=== PATIENT | male | born 1980 | race Caucasian/White ===

== ENCOUNTER 2017-11-08 11:55 | Emergency (ER) | payer MEDICARE, MEDICAID, OTHER ==
[2017-11-08 13:55] LABS: ADD MAN DIFF? NO
[2017-11-08 13:59] LABS: BASOPHIL # 0.1 10^3/ul (0.0-0.1); BASOPHILS % 0.7 % (0.0-2.0); EOSINOPHILS # 0.4 10^3/ul (0.0-0.5); EOSINOPHILS % 3.2 % (0.0-7.0); HEMATOCRIT 32.3 % (42.0-52.0); HEMOGLOBIN 10.4 g/dl (14.0-18.0); LYMPHOCYTES # 1.2 10^3/ul (0.8-2.9); LYMPHOCYTES % 9.9 % (15.0-51.0); MEAN CORPUSCULAR HEMOGLOBIN 28.1 pg (29.0-33.0); MEAN CORPUSCULAR HGB CONC 32.2 g/dl (32.0-37.0); MEAN CORPUSCULAR VOLUME 87.3 fl (82.0-101.0); MEAN PLATELET VOLUME 8.6 fl (7.4-10.4); MONOCYTE # 1.5 10^3/ul (0.3-0.9); MONOCYTES % 12.2 % (0.0-11.0); NEUTROPHIL # 8.9 10^3/ul (1.6-7.5); NEUTROPHILS % 73.4 % (39.0-77.0); PLATELET COUNT 322 10^3/UL (140-415); POSITIVE DIFF @See below; RED CELL DISTRIBUTION WIDTH 12.8 % (11.5-14.5)
[2017-11-08 13:59] LABS: WHITE BLOOD COUNT 12.2 10^3/ul (4.8-10.8)
[2017-11-08] MEDS: HYDROmorphONE 1 MG/ML SYG IV (14:10)
[2017-11-08] MEDS: METHYLPREDNISOLONE 125 MG INJ IV (14:10)
[2017-11-08] MEDS: ONDANSETRON 4 MG INJ IV ×2 (14:10→16:08)
[2017-11-08] MEDS: SOD CHLORIDE 0.9% 1,000 ML IV ×2 (14:11→18:22)
[2017-11-08 14:16] LABS: ALANINE AMINOTRANSFERASE 23 IU/L (13-69); ALBUMIN 3.5 g/dl (3.3-4.9); ALBUMIN/GLOBULIN RATIO 0.94; ALKALINE PHOSPHATASE 76 IU/L (42-121); ANION GAP 15 (8-16); ASPARTATE AMINO TRANSFERASE 15 IU/L (15-46); BILIRUBIN,INDIRECT 0.5 mg/dl (0-1.1); BILIRUBIN,TOTAL 0.5 mg/dl (0.2-1.3); BLOOD UREA NITROGEN 15 mg/dl (7-20); CALCIUM 8.7 mg/dl (8.4-10.2); CARBON DIOXIDE 25 mmol/L (21-31); CHLORIDE 102 mmol/L (97-110); CREATININE 0.65 mg/dl (0.61-1.24); GLUCOSE 128 mg/dl (70-220); LIPASE 66 U/L (23-300); POTASSIUM 3.5 mmol/L (3.5-5.1); SODIUM 138 mmol/L (135-144); TOTAL PROTEIN 7.2 g/dl (6.1-8.1)
[2017-11-08 14:35] LABS: OCCULT BLOOD STOOL NEGATIVE (NEGATIVE)
[2017-11-08] MEDS: HYDROmorphONE 2 MG/ML SYG IV (16:11)
[2017-11-08] MEDS: IOHEXOL 300MG/ML 150 ML BTL (16:24)
[2017-11-08] MEDS: SOD CHLORIDE 0.9% 100 ML (16:24)
[2017-11-08] MEDS: DIPHENHYDRAMINE 50 MG INJ IV (17:44)
== END 2017-11-08 19:24 | disposition home or self-care (01) ==
LOC: FTE 19:24
DX: K52.9 Noninfective gastroenteritis and colitis, unspecified (principal)
CPT/HCPCS: 74177; 80053; 82270; 83690; 85025; 96374; 96375; 96376; 99285-25

== ENCOUNTER 2017-11-11 14:23 | Emergency (ER) | payer MEDICARE, MEDICAID ==
[2017-11-11] MEDS: ONDANSETRON 4 MG INJ IV (15:31)
[2017-11-11] MEDS: SOD CHLORIDE 0.9% 1,000 ML IV (15:31)
[2017-11-11 15:34] LABS: ADD MAN DIFF? NO
[2017-11-11 15:37] LABS: WHITE BLOOD COUNT 10.1 10^3/ul (4.8-10.8)
[2017-11-11 15:37] LABS: ABNORMAL IP MESSAGE 1; BASOPHILS % 0.3 % (0.0-2.0); EOSINOPHILS # 0.1 10^3/ul (0.0-0.5); EOSINOPHILS % 1.2 % (0.0-7.0); HEMATOCRIT 30.5 % (42.0-52.0); HEMOGLOBIN 9.8 g/dl (14.0-18.0); LYMPHOCYTES # 2.2 10^3/ul (0.8-2.9); LYMPHOCYTES % 21.3 % (15.0-51.0); MEAN CORPUSCULAR HEMOGLOBIN 28.1 pg (29.0-33.0); MEAN CORPUSCULAR HGB CONC 32.1 g/dl (32.0-37.0); MEAN CORPUSCULAR VOLUME 87.4 fl (82.0-101.0); MEAN PLATELET VOLUME 8.7 fl (7.4-10.4); MONOCYTE # 1.8 10^3/ul (0.3-0.9); MONOCYTES % 18.1 % (0.0-11.0); NEUTROPHIL # 5.9 10^3/ul (1.6-7.5); NEUTROPHILS % 57.9 % (39.0-77.0); NUCLEATED RED BLOOD CELLS% 0.4 /100WBC (0.0-0.0); PLATELET COUNT 437 10^3/UL (140-415); POSITIVE DIFF @See below; RED BLOOD COUNT 3.49 10^6/ul (4.70-6.10); RED CELL DISTRIBUTION WIDTH 13.1 % (11.5-14.5)
[2017-11-11 16:04] LABS: ALANINE AMINOTRANSFERASE 27 IU/L (13-69); ALBUMIN 2.8 g/dl (3.3-4.9); ALKALINE PHOSPHATASE 68 IU/L (42-121); ANION GAP 9 (8-16); ASPARTATE AMINO TRANSFERASE 11 IU/L (15-46); BLOOD UREA NITROGEN 15 mg/dl (7-20); CALCIUM 8.5 mg/dl (8.4-10.2); CARBON DIOXIDE 32 mmol/L (21-31); CHLORIDE 100 mmol/L (97-110); CREATININE 0.67 mg/dl (0.61-1.24); GLUCOSE 104 mg/dl (70-220); LIPASE 59 U/L (23-300); POTASSIUM 4.1 mmol/L (3.5-5.1); SODIUM 137 mmol/L (135-144); TOTAL PROTEIN 5.9 g/dl (6.1-8.1)
[2017-11-11 18:20] LABS: UR MUCUS FEW /HPF (NONE SEEN); UR RBC 1 /HPF (0-5); UR WBC 0 /HPF (0-5)
[2017-11-11 18:26] LABS: ADD UMIC YES; UR ASCORBIC ACID NEGATIVE (NEGATIVE); UR BILIRUBIN (Dip) NEGATIVE (NEGATIVE); UR BLOOD (Dip) NEGATIVE (NEGATIVE); UR CLARITY CLEAR (CLEAR); UR COLOR YELLOW (YELLOW); UR GLUCOSE (Dip) NEGATIVE (NEGATIVE); UR KETONES (Dip) NEGATIVE (NEGATIVE); UR LEUKOCYTE ESTERASE (Dip) TRACE Leu/ul (NEGATIVE); UR NITRITE (Dip) NEGATIVE (NEGATIVE); UR TOTAL PROTEIN (Dip) NEGATIVE (NEGATIVE); UR UROBILINOGEN (Dip) NEGATIVE (NEGATIVE)
[2017-11-11] MEDS: morphine 4 MG/ML VIAL IV (18:38)
== END 2017-11-11 20:09 | disposition home or self-care (01) ==
LOC: FTE 14:23
DX: K52.9 Noninfective gastroenteritis and colitis, unspecified (principal)
CPT/HCPCS: 36415; 80053; 81001; 83690; 85025; 96361; 96374; 96375; 99284-25

== ENCOUNTER 2017-11-15 10:48 | Inpatient (IN) | payer MEDICARE, MEDICAID ==
[2017-11-15] MEDS: ONDANSETRON 4 MG INJ IV ×2 (11:30→17:05)
[2017-11-15] MEDS: SOD CHLORIDE 0.9% 1,000 ML IV (11:30)
[2017-11-15] MEDS: morphine 4 MG/ML VIAL IV (11:30)
[2017-11-15 11:40] LABS: ADD MAN DIFF? NO
[2017-11-15 11:43] LABS: WHITE BLOOD COUNT 14.1 10^3/ul (4.8-10.8)
[2017-11-15 11:43] LABS: ABNORMAL IP MESSAGE 1; BASOPHIL # 0.1 10^3/ul (0.0-0.1); BASOPHILS % 0.4 % (0.0-2.0); EOSINOPHILS # 0.2 10^3/ul (0.0-0.5); EOSINOPHILS % 1.6 % (0.0-7.0); HEMATOCRIT 32.8 % (42.0-52.0); HEMOGLOBIN 10.8 g/dl (14.0-18.0); LYMPHOCYTES # 2.6 10^3/ul (0.8-2.9); LYMPHOCYTES % 18.4 % (15.0-51.0); MEAN CORPUSCULAR HEMOGLOBIN 28.1 pg (29.0-33.0); MEAN CORPUSCULAR HGB CONC 32.9 g/dl (32.0-37.0); MEAN CORPUSCULAR VOLUME 85.2 fl (82.0-101.0); MEAN PLATELET VOLUME 8.1 fl (7.4-10.4); MONOCYTE # 1.7 10^3/ul (0.3-0.9); MONOCYTES % 12.3 % (0.0-11.0); NEUTROPHIL # 9.3 10^3/ul (1.6-7.5); NEUTROPHILS % 66.4 % (39.0-77.0); PLATELET COUNT 582 10^3/UL (140-415); POSITIVE DIFF @See below; RED BLOOD COUNT 3.85 10^6/ul (4.70-6.10); RED CELL DISTRIBUTION WIDTH 13.2 % (11.5-14.5)
[2017-11-15 12:08] LABS: ALANINE AMINOTRANSFERASE 31 IU/L (13-69); ALBUMIN 3.4 g/dl (3.3-4.9); ALBUMIN/GLOBULIN RATIO 0.87; ALKALINE PHOSPHATASE 68 IU/L (42-121); ANION GAP 17 (8-16); ASPARTATE AMINO TRANSFERASE 14 IU/L (15-46); BILIRUBIN,INDIRECT 0.4 mg/dl (0-1.1); BILIRUBIN,TOTAL 0.4 mg/dl (0.2-1.3); BLOOD UREA NITROGEN 10 mg/dl (7-20); CALCIUM 8.6 mg/dl (8.4-10.2); CARBON DIOXIDE 31 mmol/L (21-31); CHLORIDE 92 mmol/L (97-110); CREATININE 0.73 mg/dl (0.61-1.24); GLUCOSE 102 mg/dl (70-220); LIPASE 62 U/L (23-300); POTASSIUM 3.5 mmol/L (3.5-5.1); SODIUM 136 mmol/L (135-144); TOTAL PROTEIN 7.3 g/dl (6.1-8.1)
[2017-11-15] MEDS: IOHEXOL 300MG/ML 150 ML BTL (12:47)
[2017-11-15] MEDS: SOD CHLORIDE 0.9% 100 ML (12:47)
[2017-11-15] MEDS: HYDROmorphONE 0.5 MG/0.5 ML SYG IV (12:58)
[2017-11-15 13:00] LABS: BAND NEUTROPHILS #M 4.5 10^3/ul (0.0-0.6); BAND NEUTROPHILS % (M) 32 % (0-4); EOSINOPHILS % (M) 3 % (0-7); LYMPHOCYTES #M 2.5 10^3/ul (0.8-2.9); LYMPHOCYTES % (M) 18 % (15-51); METAMYELOCYTES #M 0.1 10^3/ul (0.0-0.0); METAMYELOCYTES %M 1 % (0-0); MONOCYTE #M 1.2 10^3/ul (0.3-0.9); MONOCYTES % (M) 9 % (0-11); MYELOCYTES #M 0.1 10^3/ul (0.0-0.0); MYELOCYTES % (M) 1 % (0-0); PLATELET ESTIMATE NORMAL; POLYCHROMASIA 3+ (0-0); SEG NEUT #M 5.7 10^3/ul (1.6-7.5); SEGMENTED NEUTROPHILS (M) % 36 % (39-77); SMUDGE%M 9 % (0-0)
[2017-11-15] MEDS ORDERED: SOD CHLORIDE 0.9% 1,000 ML IV (13:55)
[2017-11-15] MEDS ORDERED: METHYLPREDNISOLONE 4 MG TAB PO (14:00)
[2017-11-15] MEDS ORDERED: ONDANSETRON 4 MG INJ IV (14:00)
[2017-11-15] MEDS ORDERED: ALBUTEROL/IPRATROPIUM (NEB) 3 ML AMP HHN (14:00)
[2017-11-15] MEDS ORDERED: NITROGLYCERIN (SL) 0.4 MG TAB SL (14:00)
[2017-11-15] MEDS ORDERED: ACETAMINOPHEN 325 MG TAB PO (14:00)
[2017-11-15] MEDS ORDERED: NACL 0.9% 3 ML SYG IV (14:00)
[2017-11-15] MEDS ORDERED: NA PHOSPHATE/BIPHOS 133 ML ENEMA PR (14:00)
[2017-11-15] MEDS ORDERED: DOCUSATE SODIUM 100 MG CAP PO (14:00)
[2017-11-15] MEDS ORDERED: LORAZEPAM 2 MG INJ IV (14:00)
[2017-11-15] MEDS ORDERED: hydrALAzine 20 MG INJ IV (14:00)
[2017-11-15] MEDS ORDERED: CIPROFLOXACIN 400MG/D5W 200 ML IVPB (14:00)
[2017-11-15 14:41] LABS: FREE T4 (FREE THYROXINE) 2.04 ng/dl (0.79-2.35)
[2017-11-15 14:48] LABS: LACTIC ACID 0.6 mmol/L (0.5-2.0)
[2017-11-15 14:57] LABS: ADD UMIC NO; UR ASCORBIC ACID 40 mg/dL (NEGATIVE); UR BILIRUBIN (Dip) NEGATIVE (NEGATIVE); UR BLOOD (Dip) NEGATIVE (NEGATIVE); UR CLARITY CLEAR (CLEAR); UR COLOR YELLOW (YELLOW); UR GLUCOSE (Dip) NEGATIVE (NEGATIVE); UR KETONES (Dip) 2+ mg/dL (NEGATIVE); UR LEUKOCYTE ESTERASE (Dip) NEGATIVE Leu/ul (NEGATIVE); UR NITRITE (Dip) NEGATIVE (NEGATIVE); UR SPECIFIC GRAVITY (Dip) 1.056 (1.003-1.030); UR TOTAL PROTEIN (Dip) NEGATIVE (NEGATIVE); UR UROBILINOGEN (Dip) NEGATIVE (NEGATIVE)
[2017-11-15] MEDS: DEXTROSE 5%-0.45% NACL 1,000 ML IV (16:15)
[2017-11-15] MEDS: metroNIDAZOLE 500 MG/NS (PMX) 100 ML IVPB ×2 (16:15→22:40)
[2017-11-15] MEDS ORDERED: MESALAMINE (SR) 250 MG CAP PO (17:00)
[2017-11-15] MEDS: morphine 2 MG INJ IV ×2 (17:12→21:31)
[2017-11-15] MEDS: MESALAMINE (SR) 250 MG CAP PO ×2 (17:30→21:08)
[2017-11-15] MEDS: AZTREONAM 1 GM/NS (PMX) 50 ML IVPB (18:50)
[2017-11-15 20:34] LABS: LACTIC ACID 1.3 mmol/L (0.5-2.0)
[2017-11-15 20:55] LABS: PROTIME 17.4 Sec (11.9-14.9); PT RATIO 1.4
[2017-11-15 20:56] LABS: PARTIAL THROMBOPLASTIN TIME 49.6 Sec (25.0-35.0)
[2017-11-15] MEDS ORDERED: HEPARIN 5,000 UNIT/0.5 ML VIAL SC (21:00)
[2017-11-15] MEDS ORDERED: PANTOPRAZOLE (EC) 40 MG TAB PO (21:00)
[2017-11-15] MEDS: FERROUS SULFATE (EC) 325 MG TAB PO (21:08)
[2017-11-15] MEDS: DICLOFENAC SODIUM 1% GEL 100 GM TUBE TP (21:08)
[2017-11-15] MEDS: METHYLPREDNISOLONE 40 MG INJ IV (22:40)
[2017-11-16] MEDS: DEXTROSE 5%-0.45% NACL 1,000 ML IV ×4 (02:00→19:54)
[2017-11-16] MEDS: ONDANSETRON 4 MG INJ IV ×3 (02:31→19:53)
[2017-11-16] MEDS: morphine 2 MG INJ IV ×4 (02:31→18:52)
[2017-11-16 04:14] LABS: ALANINE AMINOTRANSFERASE 24 IU/L (13-69); ALBUMIN 2.6 g/dl (3.3-4.9); ALKALINE PHOSPHATASE 53 IU/L (42-121); ASPARTATE AMINO TRANSFERASE 14 IU/L (15-46); BILIRUBIN,INDIRECT 0.2 mg/dl (0-1.1); BILIRUBIN,TOTAL 0.2 mg/dl (0.2-1.3); TOTAL PROTEIN 5.6 g/dl (6.1-8.1)
[2017-11-16 04:15] LABS: HEMATOCRIT 27.9 % (42.0-52.0); HEMOGLOBIN 9.3 g/dl (14.0-18.0); MEAN CORPUSCULAR HEMOGLOBIN 28.1 pg (29.0-33.0); MEAN CORPUSCULAR HGB CONC 33.3 g/dl (32.0-37.0); MEAN CORPUSCULAR VOLUME 84.3 fl (82.0-101.0); MEAN PLATELET VOLUME 9.8 fl (7.4-10.4); PLATELET COUNT 363 10^3/UL (140-415); POSITIVE DIFF @See below; RED BLOOD COUNT 3.31 10^6/ul (4.70-6.10); RED CELL DISTRIBUTION WIDTH 13.4 % (11.5-14.5)
[2017-11-16 04:17] LABS: ADD MAN DIFF? YES; ANION GAP 12 (8-16); BLOOD UREA NITROGEN 7 mg/dl (7-20); CALCIUM 7.9 mg/dl (8.4-10.2); CARBON DIOXIDE 27 mmol/L (21-31); CHLORIDE 98 mmol/L (97-110); CREATININE 0.64 mg/dl (0.61-1.24); GLUCOSE 141 mg/dl (70-220); MAGNESIUM 1.7 mg/dl (1.7-2.5); PHOSPHORUS 4.3 mg/dl (2.5-4.9); POTASSIUM 4.2 mmol/L (3.5-5.1); SODIUM 133 mmol/L (135-144)
[2017-11-16 04:18] LABS: LACTIC ACID 0.8 mmol/L (0.5-2.0)
[2017-11-16 04:30] LABS: CHOLESTEROL 76 mg/dl (100-200)
[2017-11-16 04:30] LABS: CHOL/HDL RATIO 2.3 RATIO; HDL CHOLESTEROL 33 mg/dl (28-63); LDL CHOLESTEROL,CALCULATED 30 mg/dl; TRIGLYCERIDES 63 mg/dl (0-149)
[2017-11-16 04:59] LABS: BAND NEUTROPHILS #M 4.3 10^3/ul (0.0-0.6); BAND NEUTROPHILS % (M) 36 % (0-4); ERYTHROBLAST% (NRBC) (M) 1 % (0-0); LYMPHOCYTES #M 0.2 10^3/ul (0.8-2.9); LYMPHOCYTES % (M) 2 % (15-51); MONOCYTE #M 0.4 10^3/ul (0.3-0.9); MONOCYTES % (M) 4 % (0-11); MYELOCYTES #M 0.1 10^3/ul (0.0-0.0); MYELOCYTES % (M) 1 % (0-0); PLATELET ESTIMATE NORMAL; POIKILOCYTOSIS 2+ (0-0); SEG NEUT #M 7.4 10^3/ul (1.6-7.5); SEGMENTED NEUTROPHILS (M) % 57 % (39-77); SMUDGE%M 36 % (0-0)
[2017-11-16 05:15] LABS: HEMOGLOBIN A1C 5.5 % (0-5.9)
[2017-11-16 05:26] LABS: THYROID STIMULATING HORMONE 0.351 MIU/L (0.465-4.680)
[2017-11-16] MEDS: METHYLPREDNISOLONE 40 MG INJ IV ×3 (06:20→22:10)
[2017-11-16] MEDS: PANTOPRAZOLE 40 MG INJ IV (06:20)
[2017-11-16] MEDS: metroNIDAZOLE 500 MG/NS (PMX) 100 ML IVPB ×3 (06:20→22:11)
[2017-11-16] MEDS ORDERED: AZATHIOPRINE 50 MG TAB PO (09:00)
[2017-11-16] MEDS: AZTREONAM 1 GM/NS (PMX) 50 ML IVPB ×2 (09:41→20:56)
[2017-11-16] MEDS: MESALAMINE (SR) 250 MG CAP PO ×4 (09:41→20:55)
[2017-11-16] MEDS: FERROUS SULFATE (EC) 325 MG TAB PO ×2 (09:41→20:55)
[2017-11-16 09:43] LABS: LACTIC ACID 0.8 mmol/L (0.5-2.0)
[2017-11-16] MEDS: HYDROCODONE/APAP (5/325) TAB PO ×3 (11:53→23:42)
[2017-11-16 12:54] LABS: OCCULT BLOOD STOOL POSITIVE (NEGATIVE)
[2017-11-16] MEDS: DICLOFENAC SODIUM 1% GEL 100 GM TUBE TP (13:47)
[2017-11-16 14:42] LABS: LACTIC ACID 0.8 mmol/L (0.5-2.0)
[2017-11-16 20:34] LABS: LACTIC ACID 3.2 mmol/L (0.5-2.0)
[2017-11-16] MEDS: HYOSCYAMINE 0.125 MG SUBL TAB SL (20:57)
[2017-11-16] MEDS ORDERED: HYOSCYAMINE 0.125 MG SUBL TAB SL (21:00)
[2017-11-16] MEDS: SOD CHLORIDE 0.9% 500 ML IV (21:28)
[2017-11-17] MEDS: METHYLPREDNISOLONE 40 MG INJ IV ×3 (05:56→21:10)
[2017-11-17] MEDS: PANTOPRAZOLE 40 MG INJ IV (05:56)
[2017-11-17] MEDS: HYDROCODONE/APAP (5/325) TAB PO ×4 (05:56→23:54)
[2017-11-17] MEDS: metroNIDAZOLE 500 MG/NS (PMX) 100 ML IVPB ×3 (05:56→22:28)
[2017-11-17 05:57] LABS: ADD MAN DIFF? NO
[2017-11-17 06:05] LABS: WHITE BLOOD COUNT 11.2 10^3/ul (4.8-10.8)
[2017-11-17 06:05] LABS: BASOPHILS % 0.1 % (0.0-2.0); HEMATOCRIT 25.3 % (42.0-52.0); HEMOGLOBIN 8.1 g/dl (14.0-18.0); LYMPHOCYTES # 1.1 10^3/ul (0.8-2.9); LYMPHOCYTES % 9.6 % (15.0-51.0); MEAN CORPUSCULAR HEMOGLOBIN 27.4 pg (29.0-33.0); MEAN CORPUSCULAR VOLUME 85.5 fl (82.0-101.0); MEAN PLATELET VOLUME 8.4 fl (7.4-10.4); MONOCYTE # 0.6 10^3/ul (0.3-0.9); MONOCYTES % 5.6 % (0.0-11.0); NEUTROPHIL # 9.4 10^3/ul (1.6-7.5); PLATELET COUNT 413 10^3/UL (140-415); POSITIVE DIFF @See below; RED BLOOD COUNT 2.96 10^6/ul (4.70-6.10); RED CELL DISTRIBUTION WIDTH 13.4 % (11.5-14.5)
[2017-11-17] MEDS: AL HYDROX/MG HYDROX/SIMETH 30 ML CUP PO ×2 (06:08→22:55)
[2017-11-17 06:32] LABS: ANION GAP 9 (8-16); BLOOD UREA NITROGEN 11 mg/dl (7-20); CALCIUM 7.8 mg/dl (8.4-10.2); CARBON DIOXIDE 29 mmol/L (21-31); CHLORIDE 101 mmol/L (97-110); CREATININE 0.58 mg/dl (0.61-1.24); GLUCOSE 189 mg/dl (70-220); POTASSIUM 4.7 mmol/L (3.5-5.1); SODIUM 134 mmol/L (135-144)
[2017-11-17 08:17] LABS: ANISOCYTOSIS 1+ (0-0); BAND NEUTROPHILS #M 3.3 10^3/ul (0.0-0.6); BAND NEUTROPHILS % (M) 30 % (0-4); LYMPHOCYTES % (M) 9 % (15-51); MONOCYTE #M 0.2 10^3/ul (0.3-0.9); MONOCYTES % (M) 2 % (0-11); PLATELET ESTIMATE NORMAL; POIKILOCYTOSIS 1+ (0-0); POLYCHROMASIA 3+ (0-0); REACTIVE LYMPHOCYTES #M 0.1 10^3/ul (0.0-0.0); REACTIVE LYMPHOCYTES% (M) 1 % (0-0); SEG NEUT #M 6.9 10^3/ul (1.6-7.5); SEGMENTED NEUTROPHILS (M) % 58 % (39-77); SMUDGE%M 5 % (0-0)
[2017-11-17] MEDS: FERROUS SULFATE (EC) 325 MG TAB PO ×2 (09:48→21:06)
[2017-11-17] MEDS: DEXTROSE 5%-0.45% NACL 1,000 ML IV ×2 (09:48→18:00)
[2017-11-17] MEDS: MESALAMINE (SR) 250 MG CAP PO ×4 (09:48→21:07)
[2017-11-17] MEDS: AZTREONAM 1 GM/NS (PMX) 50 ML IVPB ×2 (09:48→21:08)
[2017-11-17] MEDS: HYOSCYAMINE 0.125 MG SUBL TAB SL ×3 (09:48→21:08)
[2017-11-17 13:32] LABS: HEMATOCRIT 31.2 % (42.0-52.0); HEMOGLOBIN 9.9 g/dl (14.0-18.0)
[2017-11-17 13:51] LABS: IRON 36 ug/dl (35-150)
[2017-11-17 14:00] LABS: % IRON SATURATION 22 % SAT (22-52); TOTAL IRON BINDING CAPACITY 164 ug/dl (241-421)
[2017-11-17] MEDS: SOD FERRIC GLUC COMPLX 125 MG in SOD CHLORIDE 0.9% 100 ML IVPB (14:44)
[2017-11-17 18:41] LABS: LACTIC ACID 0.8 mmol/L (0.5-2.0)
[2017-11-18] MEDS: DEXTROSE 5%-0.45% NACL 1,000 ML IV ×3 (01:11→14:00)
[2017-11-18] MEDS: DICLOFENAC SODIUM 1% GEL 100 GM TUBE TP (01:11)
[2017-11-18] MEDS: morphine 2 MG INJ IV (04:17)
[2017-11-18 05:37] LABS: ADD MAN DIFF? NO
[2017-11-18] MEDS: metroNIDAZOLE 500 MG/NS (PMX) 100 ML IVPB ×3 (05:39→21:34)
[2017-11-18] MEDS: METHYLPREDNISOLONE 40 MG INJ IV ×3 (05:40→20:24)
[2017-11-18] MEDS: PANTOPRAZOLE 40 MG INJ IV (05:40)
[2017-11-18 05:46] LABS: BASOPHILS % 0.2 % (0.0-2.0); HEMATOCRIT 27.1 % (42.0-52.0); HEMOGLOBIN 8.8 g/dl (14.0-18.0); LYMPHOCYTES % 7.4 % (15.0-51.0); MEAN CORPUSCULAR HEMOGLOBIN 27.8 pg (29.0-33.0); MEAN CORPUSCULAR HGB CONC 32.5 g/dl (32.0-37.0); MEAN CORPUSCULAR VOLUME 85.8 fl (82.0-101.0); MEAN PLATELET VOLUME 8.7 fl (7.4-10.4); MONOCYTES % 7.4 % (0.0-11.0); NEUTROPHIL # 10.8 10^3/ul (1.6-7.5); PLATELET COUNT 474 10^3/UL (140-415); RED BLOOD COUNT 3.16 10^6/ul (4.70-6.10); RED CELL DISTRIBUTION WIDTH 13.4 % (11.5-14.5)
[2017-11-18 05:46] LABS: WHITE BLOOD COUNT 12.9 10^3/ul (4.8-10.8)
[2017-11-18 06:19] LABS: ANION GAP 8 (8-16); BLOOD UREA NITROGEN 11 mg/dl (7-20); CALCIUM 8.1 mg/dl (8.4-10.2); CARBON DIOXIDE 29 mmol/L (21-31); CHLORIDE 102 mmol/L (97-110); CREATININE 0.61 mg/dl (0.61-1.24); GLUCOSE 150 mg/dl (70-220); POTASSIUM 4.3 mmol/L (3.5-5.1); SODIUM 135 mmol/L (135-144)
[2017-11-18] MEDS: FERROUS SULFATE (EC) 325 MG TAB PO ×2 (08:37→20:25)
[2017-11-18] MEDS: MESALAMINE (SR) 250 MG CAP PO ×4 (08:38→20:25)
[2017-11-18] MEDS: HYOSCYAMINE 0.125 MG SUBL TAB SL ×3 (08:38→20:25)
[2017-11-18] MEDS: AZTREONAM 1 GM/NS (PMX) 50 ML IVPB ×2 (08:43→20:24)
[2017-11-19] MEDS: MAGNESIUM HYDROXIDE 30ML CUP PO (02:00)
[2017-11-19] MEDS: DEXTROSE 5%-0.45% NACL 1,000 ML IV ×2 (03:35)
[2017-11-19] MEDS: PANTOPRAZOLE 40 MG INJ IV (05:41)
[2017-11-19] MEDS: metroNIDAZOLE 500 MG/NS (PMX) 100 ML IVPB (05:41)
[2017-11-19] MEDS: METHYLPREDNISOLONE 40 MG INJ IV ×3 (05:42→21:31)
[2017-11-19 06:25] LABS: ANION GAP 8 (8-16); BLOOD UREA NITROGEN 11 mg/dl (7-20); CALCIUM 8.1 mg/dl (8.4-10.2); CARBON DIOXIDE 30 mmol/L (21-31); CHLORIDE 101 mmol/L (97-110); CREATININE 0.52 mg/dl (0.61-1.24); GLUCOSE 138 mg/dl (70-220); POTASSIUM 4.3 mmol/L (3.5-5.1); SODIUM 135 mmol/L (135-144)
[2017-11-19 07:12] LABS: C-REACTIVE PROTEIN 3.8 mg/dl (0.0-0.9)
[2017-11-19 07:20] LABS: ALANINE AMINOTRANSFERASE 12 IU/L (13-69); ALBUMIN 2.6 g/dl (3.3-4.9); ALKALINE PHOSPHATASE 40 IU/L (42-121); ASPARTATE AMINO TRANSFERASE 17 IU/L (15-46); BILIRUBIN,INDIRECT 0.2 mg/dl (0-1.1); BILIRUBIN,TOTAL 0.2 mg/dl (0.2-1.3); TOTAL PROTEIN 5.9 g/dl (6.1-8.1)
[2017-11-19] MEDS: MESALAMINE (SR) 250 MG CAP PO ×4 (08:17→20:31)
[2017-11-19] MEDS: FERROUS SULFATE (EC) 325 MG TAB PO ×2 (08:17→20:29)
[2017-11-19] MEDS: AZTREONAM 1 GM/NS (PMX) 50 ML IVPB (08:18)
[2017-11-19] MEDS: HYOSCYAMINE 0.125 MG SUBL TAB SL ×3 (08:21→20:30)
[2017-11-19 08:28] LABS: ERYTHROCYTE SEDIMENTATION RATE 73 mm/Hr (0-15)
[2017-11-19 11:47] LABS: ADD MAN DIFF? NO
[2017-11-19 12:04] LABS: WHITE BLOOD COUNT 13.1 10^3/ul (4.8-10.8)
[2017-11-19 12:04] LABS: BASOPHILS % 0.2 % (0.0-2.0); HEMATOCRIT 27.7 % (42.0-52.0); HEMOGLOBIN 8.7 g/dl (14.0-18.0); LYMPHOCYTES # 1.5 10^3/ul (0.8-2.9); LYMPHOCYTES % 11.6 % (15.0-51.0); MEAN CORPUSCULAR HEMOGLOBIN 26.9 pg (29.0-33.0); MEAN CORPUSCULAR HGB CONC 31.4 g/dl (32.0-37.0); MEAN CORPUSCULAR VOLUME 85.8 fl (82.0-101.0); MEAN PLATELET VOLUME 9.8 fl (7.4-10.4); MONOCYTE # 1.2 10^3/ul (0.3-0.9); MONOCYTES % 9.1 % (0.0-11.0); NEUTROPHIL # 10.3 10^3/ul (1.6-7.5); NEUTROPHILS % 78.4 % (39.0-77.0); PLATELET COUNT 429 10^3/UL (140-415); RED BLOOD COUNT 3.23 10^6/ul (4.70-6.10); RED CELL DISTRIBUTION WIDTH 13.8 % (11.5-14.5)
[2017-11-20 06:07] LABS: ADD MAN DIFF? NO
[2017-11-20] MEDS: METHYLPREDNISOLONE 40 MG INJ IV ×3 (06:08→23:01)
[2017-11-20 06:16] LABS: BASOPHILS % 0.1 % (0.0-2.0); HEMOGLOBIN 9.4 g/dl (14.0-18.0); LYMPHOCYTES # 1.5 10^3/ul (0.8-2.9); LYMPHOCYTES % 10.2 % (15.0-51.0); MEAN CORPUSCULAR HEMOGLOBIN 28.1 pg (29.0-33.0); MEAN CORPUSCULAR HGB CONC 32.4 g/dl (32.0-37.0); MEAN CORPUSCULAR VOLUME 86.8 fl (82.0-101.0); MEAN PLATELET VOLUME 8.5 fl (7.4-10.4); MONOCYTE # 1.2 10^3/ul (0.3-0.9); MONOCYTES % 8.1 % (0.0-11.0); NEUTROPHIL # 12.2 10^3/ul (1.6-7.5); NEUTROPHILS % 80.3 % (39.0-77.0); NUCLEATED RED BLOOD CELLS% 0.1 /100WBC (0.0-0.0); PLATELET COUNT 516 10^3/UL (140-415); RED BLOOD COUNT 3.34 10^6/ul (4.70-6.10); RED CELL DISTRIBUTION WIDTH 13.6 % (11.5-14.5)
[2017-11-20 06:16] LABS: WHITE BLOOD COUNT 15.2 10^3/ul (4.8-10.8)
[2017-11-20 07:05] LABS: ANION GAP 6 (8-16); BLOOD UREA NITROGEN 15 mg/dl (7-20); CALCIUM 8.4 mg/dl (8.4-10.2); CARBON DIOXIDE 33 mmol/L (21-31); CHLORIDE 102 mmol/L (97-110); CREATININE 0.67 mg/dl (0.61-1.24); GLUCOSE 125 mg/dl (70-220); POTASSIUM 4.6 mmol/L (3.5-5.1); SODIUM 136 mmol/L (135-144)
[2017-11-20] MEDS: FERROUS SULFATE (EC) 325 MG TAB PO ×2 (08:08→20:43)
[2017-11-20] MEDS: HYOSCYAMINE 0.125 MG SUBL TAB SL ×3 (08:08→20:43)
[2017-11-20] MEDS: MESALAMINE (SR) 250 MG CAP PO ×4 (08:09→20:47)
[2017-11-20] MEDS: HYDROmorphONE 0.5 MG/0.5 ML SYG IV ×2 (18:43→23:01)
[2017-11-21] MEDS: predniSONE 20 MG TAB PO ×2 (06:10→15:19)
[2017-11-21] MEDS: MAGNESIUM HYDROXIDE 30ML CUP PO (06:14)
[2017-11-21] MEDS: HYDROmorphONE 1 MG/ML SYG IV ×2 (06:33→22:59)
[2017-11-21 06:41] LABS: ADD MAN DIFF? NO
[2017-11-21 06:44] LABS: BASOPHILS % 0.1 % (0.0-2.0); LYMPHOCYTES # 2.4 10^3/ul (0.8-2.9); MEAN CORPUSCULAR HEMOGLOBIN 27.4 pg (29.0-33.0); MEAN CORPUSCULAR HGB CONC 31.4 g/dl (32.0-37.0); MEAN CORPUSCULAR VOLUME 87.3 fl (82.0-101.0); MEAN PLATELET VOLUME 9.5 fl (7.4-10.4); MONOCYTE # 1.4 10^3/ul (0.3-0.9); MONOCYTES % 6.8 % (0.0-11.0); NEUTROPHIL # 15.9 10^3/ul (1.6-7.5); NEUTROPHILS % 79.8 % (39.0-77.0); NUCLEATED RED BLOOD CELLS% 0.1 /100WBC (0.0-0.0); PLATELET COUNT 603 10^3/UL (140-415); RED BLOOD COUNT 4.01 10^6/ul (4.70-6.10); RED CELL DISTRIBUTION WIDTH 14.1 % (11.5-14.5)
[2017-11-21 07:40] LABS: ANION GAP 10 (8-16); BLOOD UREA NITROGEN 19 mg/dl (7-20); CARBON DIOXIDE 31 mmol/L (21-31); CHLORIDE 98 mmol/L (97-110); CREATININE 0.58 mg/dl (0.61-1.24); GLUCOSE 114 mg/dl (70-220); POTASSIUM 4.2 mmol/L (3.5-5.1); SODIUM 135 mmol/L (135-144)
[2017-11-21] MEDS: FERROUS SULFATE (EC) 325 MG TAB PO ×2 (08:16→21:04)
[2017-11-21] MEDS: HYOSCYAMINE 0.125 MG SUBL TAB SL ×3 (08:16→21:05)
[2017-11-21] MEDS: MESALAMINE (SR) 250 MG CAP PO ×4 (08:16→21:05)
[2017-11-21] MEDS: ACETAMINOPHEN 325 MG TAB PO ×2 (15:22→22:15)
[2017-11-21] MEDS: predniSONE 10 MG TAB PO (22:15)
[2017-11-21] MEDS: ZOLPIDEM 5 MG TAB PO (23:58)
[2017-11-22 05:30] LABS: ADD MAN DIFF? NO
[2017-11-22 05:34] LABS: HEMOGLOBIN 9.6 g/dl (14.0-18.0); LYMPHOCYTES # 1.4 10^3/ul (0.8-2.9); LYMPHOCYTES % 9.1 % (15.0-51.0); MEAN CORPUSCULAR HEMOGLOBIN 27.7 pg (29.0-33.0); MEAN CORPUSCULAR VOLUME 86.5 fl (82.0-101.0); MEAN PLATELET VOLUME 8.5 fl (7.4-10.4); MONOCYTE # 1.1 10^3/ul (0.3-0.9); MONOCYTES % 7.3 % (0.0-11.0); NEUTROPHIL # 12.4 10^3/ul (1.6-7.5); NEUTROPHILS % 82.7 % (39.0-77.0); PLATELET COUNT 562 10^3/UL (140-415); POSITIVE DIFF @See below; RED BLOOD COUNT 3.47 10^6/ul (4.70-6.10); RED CELL DISTRIBUTION WIDTH 14.5 % (11.5-14.5)
[2017-11-22 06:06] LABS: ALANINE AMINOTRANSFERASE 32 IU/L (13-69); ALBUMIN 2.8 g/dl (3.3-4.9); ALKALINE PHOSPHATASE 65 IU/L (42-121); ASPARTATE AMINO TRANSFERASE 22 IU/L (15-46); BILIRUBIN,INDIRECT 0.3 mg/dl (0-1.1); BILIRUBIN,TOTAL 0.3 mg/dl (0.2-1.3); TOTAL PROTEIN 5.8 g/dl (6.1-8.1)
[2017-11-22 06:11] LABS: ANION GAP 9 (8-16); BLOOD UREA NITROGEN 16 mg/dl (7-20); CALCIUM 8.4 mg/dl (8.4-10.2); CARBON DIOXIDE 30 mmol/L (21-31); CHLORIDE 98 mmol/L (97-110); GLUCOSE 124 mg/dl (70-220); POTASSIUM 4.5 mmol/L (3.5-5.1); SODIUM 132 mmol/L (135-144)
[2017-11-22] MEDS: predniSONE 10 MG TAB PO ×3 (06:21→22:56)
[2017-11-22] MEDS: FERROUS SULFATE (EC) 325 MG TAB PO ×2 (08:28→20:20)
[2017-11-22] MEDS: MESALAMINE (SR) 250 MG CAP PO ×4 (08:29→20:21)
[2017-11-22] MEDS: HYDROmorphONE 1 MG/ML SYG IV ×3 (08:41→20:20)
[2017-11-22] MEDS: IOHEXOL 300MG/ML 150 ML BTL (09:01)
[2017-11-22] MEDS: SOD CHLORIDE 0.9% 100 ML (09:01)
[2017-11-22] MEDS: HYOSCYAMINE 0.125 MG SUBL TAB SL ×3 (09:24→20:21)
[2017-11-22] MEDS: ONDANSETRON 4 MG INJ IV ×2 (09:33→20:12)
[2017-11-22] MEDS: HYDROCODONE/APAP (5/325) TAB PO (16:23)
[2017-11-23] MEDS: ACETAMINOPHEN 325 MG TAB PO ×2 (02:35→10:54)
[2017-11-23] MEDS: predniSONE 10 MG TAB PO ×2 (05:29→13:38)
[2017-11-23 06:10] LABS: ADD MAN DIFF? NO
[2017-11-23 06:15] LABS: WHITE BLOOD COUNT 12.4 10^3/ul (4.8-10.8)
[2017-11-23 06:15] LABS: BASOPHILS % 0.2 % (0.0-2.0); HEMATOCRIT 29.8 % (42.0-52.0); HEMOGLOBIN 9.6 g/dl (14.0-18.0); LYMPHOCYTES # 1.1 10^3/ul (0.8-2.9); LYMPHOCYTES % 9.1 % (15.0-51.0); MEAN CORPUSCULAR HEMOGLOBIN 27.7 pg (29.0-33.0); MEAN CORPUSCULAR HGB CONC 32.2 g/dl (32.0-37.0); MEAN CORPUSCULAR VOLUME 86.1 fl (82.0-101.0); MEAN PLATELET VOLUME 8.3 fl (7.4-10.4); MONOCYTE # 0.9 10^3/ul (0.3-0.9); MONOCYTES % 7.4 % (0.0-11.0); NEUTROPHIL # 10.2 10^3/ul (1.6-7.5); NEUTROPHILS % 82.8 % (39.0-77.0); PLATELET COUNT 573 10^3/UL (140-415); RED BLOOD COUNT 3.46 10^6/ul (4.70-6.10); RED CELL DISTRIBUTION WIDTH 14.3 % (11.5-14.5)
[2017-11-23 06:52] LABS: ANION GAP 10 (8-16); BLOOD UREA NITROGEN 15 mg/dl (7-20); CALCIUM 8.5 mg/dl (8.4-10.2); CARBON DIOXIDE 32 mmol/L (21-31); CHLORIDE 97 mmol/L (97-110); CREATININE 0.56 mg/dl (0.61-1.24); GLUCOSE 117 mg/dl (70-220); POTASSIUM 4.2 mmol/L (3.5-5.1); SODIUM 135 mmol/L (135-144)
[2017-11-23 06:56] LABS: C-REACTIVE PROTEIN 2.5 mg/dl (0.0-0.9)
[2017-11-23] MEDS: MESALAMINE (SR) 250 MG CAP PO ×4 (08:49→20:27)
[2017-11-23] MEDS: FERROUS SULFATE (EC) 325 MG TAB PO ×2 (08:49→20:24)
[2017-11-23] MEDS: HYOSCYAMINE 0.125 MG SUBL TAB SL ×3 (08:50→20:27)
[2017-11-23] MEDS: HYDROCODONE/APAP (5/325) TAB PO ×2 (14:57→21:06)
[2017-11-23] MEDS: ONDANSETRON 4 MG INJ IV (19:51)
[2017-11-24] MEDS: predniSONE 10 MG TAB PO ×3 (00:16→13:08)
[2017-11-24] MEDS: HYOSCYAMINE 0.125 MG SUBL TAB SL ×3 (08:49→21:04)
[2017-11-24] MEDS: FERROUS SULFATE (EC) 325 MG TAB PO ×2 (08:50→21:04)
[2017-11-24] MEDS: MESALAMINE (SR) 250 MG CAP PO ×4 (08:51→21:04)
[2017-11-24] MEDS: HYDROCODONE/APAP (5/325) TAB PO ×2 (09:30→18:19)
[2017-11-24] MEDS: METHYLPREDNISOLONE 40 MG INJ IV (21:04)
[2017-11-25] MEDS: HYDROCODONE/APAP (5/325) TAB PO ×4 (00:09→18:58)
[2017-11-25] MEDS: METHYLPREDNISOLONE 40 MG INJ IV ×3 (05:41→22:18)
[2017-11-25 05:48] LABS: ADD MAN DIFF? NO
[2017-11-25 05:49] LABS: WHITE BLOOD COUNT 14.2 10^3/ul (4.8-10.8)
[2017-11-25 05:49] LABS: BASOPHILS % 0.1 % (0.0-2.0); HEMOGLOBIN 10.1 g/dl (14.0-18.0); LYMPHOCYTES # 1.4 10^3/ul (0.8-2.9); LYMPHOCYTES % 9.5 % (15.0-51.0); MEAN CORPUSCULAR HEMOGLOBIN 28.4 pg (29.0-33.0); MEAN CORPUSCULAR HGB CONC 32.6 g/dl (32.0-37.0); MEAN CORPUSCULAR VOLUME 87.1 fl (82.0-101.0); MEAN PLATELET VOLUME 8.3 fl (7.4-10.4); MONOCYTE # 1.1 10^3/ul (0.3-0.9); MONOCYTES % 7.9 % (0.0-11.0); NEUTROPHIL # 11.6 10^3/ul (1.6-7.5); NEUTROPHILS % 81.9 % (39.0-77.0); PLATELET COUNT 619 10^3/UL (140-415); RED BLOOD COUNT 3.56 10^6/ul (4.70-6.10); RED CELL DISTRIBUTION WIDTH 14.4 % (11.5-14.5)
[2017-11-25] MEDS: MESALAMINE (SR) 250 MG CAP PO ×4 (09:16→22:17)
[2017-11-25] MEDS: FERROUS SULFATE (EC) 325 MG TAB PO ×2 (09:16→22:18)
[2017-11-25] MEDS: HYOSCYAMINE 0.125 MG SUBL TAB SL ×3 (09:16→22:20)
[2017-11-25] MEDS: MAGNESIUM HYDROXIDE 30ML CUP PO (09:21)
[2017-11-25] MEDS: ONDANSETRON 4 MG INJ IV (12:56)
[2017-11-26] MEDS: METHYLPREDNISOLONE 40 MG INJ IV ×3 (05:19→21:43)
[2017-11-26] MEDS: HYDROCODONE/APAP (5/325) TAB PO ×3 (05:20→21:43)
[2017-11-26 07:47] LABS: ERYTHROCYTE SEDIMENTATION RATE 90 mm/Hr (0-15)
[2017-11-26] MEDS: HYOSCYAMINE 0.125 MG SUBL TAB SL ×3 (08:53→20:58)
[2017-11-26] MEDS: FERROUS SULFATE (EC) 325 MG TAB PO ×2 (08:53→20:58)
[2017-11-26] MEDS: MESALAMINE (SR) 250 MG CAP PO ×4 (08:53→20:58)
[2017-11-27] MEDS: DICLOFENAC SODIUM 1% GEL 100 GM TUBE TP ×2 (02:11→21:19)
[2017-11-27] MEDS: METHYLPREDNISOLONE 40 MG INJ IV ×3 (05:30→23:57)
[2017-11-27] MEDS: MESALAMINE (SR) 250 MG CAP PO ×4 (08:27→20:43)
[2017-11-27] MEDS: HYOSCYAMINE 0.125 MG SUBL TAB SL ×3 (08:27→20:43)
[2017-11-27] MEDS: FERROUS SULFATE (EC) 325 MG TAB PO ×2 (08:27→20:43)
[2017-11-27] MEDS: ONDANSETRON 4 MG INJ IV (09:52)
[2017-11-27] MEDS: HYDROCODONE/APAP (5/325) TAB PO ×2 (09:53→18:18)
[2017-11-28] MEDS: HYDROCODONE/APAP (5/325) TAB PO ×2 (01:37→15:42)
[2017-11-28] MEDS: METHYLPREDNISOLONE 40 MG INJ IV ×3 (05:12→20:55)
[2017-11-28] MEDS: FERROUS SULFATE (EC) 325 MG TAB PO ×2 (08:49→20:55)
[2017-11-28] MEDS: MESALAMINE (SR) 250 MG CAP PO ×4 (08:49→20:54)
[2017-11-28] MEDS: HYOSCYAMINE 0.125 MG SUBL TAB SL ×3 (08:49→20:52)
[2017-11-28 12:38] LABS: ADD MAN DIFF? NO
[2017-11-28 12:59] LABS: ABNORMAL IP MESSAGE 1; ANION GAP 9 (8-16); BASOPHILS % 0.1 % (0.0-2.0); BLOOD UREA NITROGEN 23 mg/dl (7-20); CALCIUM 8.6 mg/dl (8.4-10.2); CARBON DIOXIDE 32 mmol/L (21-31); CHLORIDE 93 mmol/L (97-110); CREATININE 0.45 mg/dl (0.61-1.24); GLUCOSE 209 mg/dl (70-220); HEMATOCRIT 30.9 % (42.0-52.0); LYMPHOCYTES # 0.8 10^3/ul (0.8-2.9); LYMPHOCYTES % 7.4 % (15.0-51.0); MAGNESIUM 1.9 mg/dl (1.7-2.5); MEAN CORPUSCULAR HEMOGLOBIN 27.9 pg (29.0-33.0); MEAN CORPUSCULAR HGB CONC 32.4 g/dl (32.0-37.0); MEAN CORPUSCULAR VOLUME 86.3 fl (82.0-101.0); MEAN PLATELET VOLUME 8.2 fl (7.4-10.4); MONOCYTE # 1.8 10^3/ul (0.3-0.9); MONOCYTES % 15.8 % (0.0-11.0); NEUTROPHIL # 8.6 10^3/ul (1.6-7.5); PHOSPHORUS 3.6 mg/dl (2.5-4.9); PLATELET COUNT 514 10^3/UL (140-415); POSITIVE DIFF @See below; POTASSIUM 3.7 mmol/L (3.5-5.1); RED BLOOD COUNT 3.58 10^6/ul (4.70-6.10); RED CELL DISTRIBUTION WIDTH 14.8 % (11.5-14.5); SODIUM 130 mmol/L (135-144)
[2017-11-28 12:59] LABS: WHITE BLOOD COUNT 11.3 10^3/ul (4.8-10.8)
[2017-11-29] MEDS: HYDROCODONE/APAP (5/325) TAB PO ×2 (00:37→16:07)
[2017-11-29] MEDS: METHYLPREDNISOLONE 40 MG INJ IV (08:49)
[2017-11-29] MEDS: HYOSCYAMINE 0.125 MG SUBL TAB SL ×2 (08:49→13:13)
[2017-11-29] MEDS: FERROUS SULFATE (EC) 325 MG TAB PO (08:49)
[2017-11-29] MEDS: MESALAMINE (SR) 250 MG CAP PO ×3 (08:50→16:07)
[2017-11-29] MEDS: SUCRALFATE 1 GM TAB PO (16:07)
[2017-11-29] MEDS: ONDANSETRON 4 MG INJ IV (17:21)
[2017-11-29] MEDS ORDERED: predniSONE 10 MG TAB PO (21:00)
[2017-11-30] MEDS ORDERED: PANTOPRAZOLE (EC) 40 MG TAB PO (06:00)
== END 2017-11-29 19:00 | disposition home or self-care (01) | DRG 386 ==
LOC: 2NE 11-27 13:47 → FTE 10:48 → MS2 13:45
PROVIDERS: Hospitalist
DX: K50.111 Crohn's disease of large intestine with rectal bleeding (principal); A09 Infectious gastroenteritis and colitis, unspecified; M31.30 Wegener's granulomatosis without renal involvement
CPT/HCPCS: 36415; 74177; 80048; 80053; 80061; 80076; 81003; 82270; 83036; 83540; 83605; 83690; 83735; 84100; 84439; 84443; 85014; 85018; 85025; 85610; 85651; 85730; 86140; 86674; 87040; 87045; 87075; 87205; 96361; 96374; 96375; 99285-25